=== PATIENT | female | born 1945 | race Caucasian/White ===

== ENCOUNTER → 2021-06-30 12:11 | Outpatient (CLI) | payer MEDICARE, SELFPAY ==
--- NOTE | ~2021-06-30 | US_ITS ---
EXAMINATION: US pelvic complete DATE: 06/30/2021 13:09 INDICATION: Left lower quadrant pain Comparison:No prior studies for comparison. TECHNIQUE: Multiple transabdominal sonographic images of the pelvis performed. FINDINGS: The uterus measures 8.3 x 2 x 3.4 cm. The endometrial complex measures 3 mm. The ovaries are not visualized. No adnexal masses or fluid collections. There is no free fluid in the pelvis. There are no abnormal masses seen on either side. IMPRESSION: 1. Unremarkable pelvic ultrasound. Ovaries not visualized. Reviewed, dictated and finalized at location A.
--- NOTE | ~2021-06-30 | XR_ITS ---
EXAMINATION: XR hip LT min 2V DATE: 06/30/2021 14:29 INDICATION: Left hip pain. TECHNIQUE: 2 views of left hip were obtained. COMPARISON: None. FINDINGS: Bone alignment is normal. No fracture. There is mild left hip osteoarthritis. There are vas cular stents in the left pelvis and left thigh. There are surgical clips in left thigh. IMPRESSION: 1. Mild left hip osteoarthritis. Reviewed, dictated and finalized at location A.
--- NOTE | ~2021-06-30 | US_ITS ---
EXAMINATION: US soft tissue groin LT EXAM DATE: 06/30/2021 13:09 INDICATION: Left lower quadrant pain. TECHNIQUE: Multiple grayscale and Doppler images of the left lower quadrant soft tissue were obtained (by a technologist who performed the scan) and subsequently reviewed. There is no prior study for c omparison. FINDINGS: Scanning in the left inguinal region demonstrates several lymph nodes which are upper limits of jay l in size, but which do have normal fatty cameron consistent with reactive etiology. No other mass or he rnia is identified. These measure 1.2 x 0.9 x 0.9 cm, 1.3 x 0.6 x 1.2 cm, 1.0 x 0.4 x 0.8 cm. IMPRESSION: Left inguinal lymph nodes, likely reactive. Reviewed, dictated and finalized at location B.
== END ==
PROVIDERS: PCP Physician Assistant; Visit Provider Physician Assistant
DX: R10.32 Left lower quadrant pain (principal); M79.89 Other specified soft tissue disorders; M16.12 Unilateral primary osteoarthritis, left hip
CPT/HCPCS: 73502; 76856; 76882

== ENCOUNTER 2024-09-11 16:20 | Emergency (ER) | payer MEDICARE, SELFPAY ==
[2024-09-11 16:24] VITALS: BP 122/49; PULSE 84; RESP 18; TEMP 36.7; O2SAT 98
--- NOTE | 2024-09-11 17:09 | ED_ITS ---
HPI - Wound/Laceration General Chief Complaint: Wound/Laceration Stated Complaint: Wound Check/Right Foot Source: patient Mode of arrival: ambulatory Limitations: no limitations History of Present Illness HPI narrative: 79 y/o female presented for concern of infected laceration wound sustained 1 month ago. States she had the wound repaired at an ER, and was told the sutures were dissolvable. However she still has the sutures in place. Today she removed a suture on her own, and the wound opened and drained pus after she removed it. States she had cleaned the site often with alcohol and antibiotic ointment and covered it with bandaids. Related Data Home Medications Medication Instructions Recorded Confirmed apixaban 5 mg tablet (Eliquis) 5 mg PO BID 09/11/24 09/11/24 dapagliflozin propanediol 10 mg 10 mg PO DAILY 09/11/24 09/11/24 tablet (Farxiga) ezetimibe 10 mg tablet 10 mg PO DAILY 09/11/24 09/11/24 levothyroxine 88 mcg tablet 88 mcg PO DAILY 09/11/24 09/11/24 (Synthroid) metformin 500 mg tablet,extended 500 mg PO DAILY 09/11/24 09/11/24 release 24 hr metoprolol succinate 50 mg 50 mg PO DAILY 09/11/24 09/11/24 tablet,extended release 24 hr nitroglycerin 0.1 mg/hr See Rx Instructions .Route .COMPLEX 09/11/24 09/11/24 transdermal 24 hour patch rosuvastatin 40 mg tablet (Crestor) 40 mg PO DAILY 09/11/24 09/11/24 trazodone 50 mg tablet 50 mg PO DAILY 09/11/24 09/11/24 Allergies Allergy/AdvReac Type Severity Reaction Status Date / Time No Known Allergies Allergy Verified 09/11/24 16:47 Review of Systems Review of Systems: CONSTITUTIONAL: Denies body aches, fever, chills, or sweats. EYES: Denies visual changes, redness, or discharge. ENT: Denies rhinorrhea, congestion CARDIOVASCULAR: Denies chest pain, palpitations, or edema. RESPIRATORY: Denies cough or dyspnea. GASTROINTESTINAL: Denies abdominal pain, nausea, vomiting, or diarrhea. SKIN: MUSCULOSKELETAL: Denies back pain, joint pain, or myalgia. NEUROLOGIC: Denies headache, numbness, tingling, or weakness. [facility] Past Medical History Medical History Atrial fibrillation Breast cancer Pancreatic cancer Comments At time of signature, I have reviewed and agree with nursing past medical, surgical, social and family history unless otherwise noted. Please see nursing chart for further information. There is no relevant family history pertinent to the presenting complaint Exam Narrative: GENERAL: Well-appearing HEAD: Normocephalic, atraumatic. EYES: conjunctivae clear, and EOMI. ENT: Mucous membranes moist. SKIN: Warm, dry. Right anterior ankle with approx 1.5cm irregular laceration with [address] but cut. Center of laceration is <0.5cm scabbed unapproximated area. No active drainage, fluctuance, warmth, or swelling. CMS intact. NEURO: Alert and oriented x3. Course Course Emergency Course: Patient is aware of diagnosis, understands and agrees to treatment plan. Anticipatory guidance given. Patient agrees to follow-up as directed and is aware of reasons to seek care at the emergency department. Portions of this record may have been created with voice recognition software Level of Care: Express Care Visit Vital Signs Vital signs: Vital Signs Temperature 98.1 F 09/11/24 16:24 Pulse Rate 84 09/11/24 16:24 Respiratory Rate 18 09/11/24 16:24 Blood Pressure 122/49 L 09/11/24 16:24 Pulse Oximetry 98 09/11/24 16:24 Oxygen Delivery Room Air 09/11/24 16:24 Temperature 98.1 F 09/11/24 16:24 Pulse Rate 84 09/11/24 16:24 Respiratory Rate 18 09/11/24 16:24 Blood Pressure 122/49 L 09/11/24 16:24 Pulse Oximetry 98 09/11/24 16:24 Oxygen Delivery Room Air 09/11/24 16:24 Reviewed Procedures Other Procedure Procedure 1: Other Procedure: Suture removal Right anterior ankle: Pt tolerated suture removal x4. Advised to soak the remaining suture because the skin was dried around the site, resulting in pain when attempting to remove the suture. However, she stated to the RN she did not want to wait any longer and eloped prior to last suture removed. The sutures were cut prior to arrival. No apparent cellulitis, fluctuance, drainage, warmth, or induration. MDM - Wound/Laceration MDM Narrative Medical decision making narrative: Discussed physical exam findings. Pt tolerated suture removal x4. Advised to soak the remaining suture because the skin was dried around the site, resulting in pain when attempting to remove the suture. However, she stated to the RN she did not want to wait any longer and eloped prior to last suture removed. The suture was cut prior to arrival. Differential Diagnosis Differential diagnosis: Likely laceration Discharge Plan Discharge Clinical Impression: Encounter for removal of sutures Patient Disposition: Elopement After Seen by Prov Condition: Stable Additional Instructions: Keep the area clean and dry - cleanse with warm water and mild soap and allow to fully dry. Ok to apply neosporin to the site Keep it open to air (no bandages unless draining) Watch for worsening symptoms including pain, redness, swelling, streaking, pus/drainage, fever. Go to the ER with any of these symptoms or concerns. Follow up with primary care provider in 1 week as needed. Prescriptions: No Action nitroglycerin 0.1 mg/hr patch 24 hour See Rx Instructions .ROUTE .COMPLEX Rx Instructions: as prescribed trazodone 50 mg tablet 50 mg PO DAILY metoprolol succinate 50 mg tablet extended release 24 hr 50 mg PO DAILY levothyroxine [Synthroid] 88 mcg tablet 88 mcg PO DAILY metformin 500 mg tablet extended release 24 hr 500 mg PO DAILY ezetimibe 10 mg tablet 10 mg PO DAILY rosuvastatin [Crestor] 40 mg tablet 40 mg PO DAILY dapagliflozin propanediol [Farxiga] 10 mg tablet 10 mg PO DAILY Eliquis 5 mg tablet 5 mg PO BID Follow-up/Referrals: PHYSICIAN NOT ON STAFF,NONSTAFF [Primary Care Provider] - Time of Disposition: 18:13
== END 2024-09-11 17:30 | disposition left against medical advice (07) ==
PROVIDERS: Emergency Provider Nurse Practitioner Family
DX: S91.011D Laceration without foreign body, right ankle, subsequent encounter (principal); X58.XXXD Exposure to other specified factors, subsequent encounter; I48.91 Unspecified atrial fibrillation; Z85.3 Personal history of malignant neoplasm of breast; Z85.07 Personal history of malignant neoplasm of pancreas; Z79.01 Long term (current) use of anticoagulants
CPT/HCPCS: 99211; G0463